=== PATIENT | female | born 1980 | race Caucasian/White ===

== ENCOUNTER 2023-05-23 18:03 | Observation (INO) | payer SELFPAY ==
[2023-05-23 20:48] VITALS: BMI 36.8
[2023-05-23] MEDS ORDERED: Promethazine HCl 25 MG/ML VIAL IM PRN (21:04)
[2023-05-23] MEDS ORDERED: Tranexamic Acid 1,000 MG/10 ML VIAL IVP PRN (21:04)
[2023-05-23] MEDS ORDERED: Ondansetron PF 4 MG/2 ML Vial IVP PRN (21:04)
[2023-05-23] MEDS ORDERED: Zolpidem Tartrate 5 MG TAB PO PRN (21:04)
[2023-05-23] MEDS ORDERED: Docusate 100 MG CAP PO PRN (21:04)
[2023-05-23] MEDS ORDERED: Cyclobenzaprine 10 MG TAB PO PRN (21:09)
[2023-05-23] MEDS ORDERED: Acetaminophen 500 MG TAB PO PRN (21:11)
[2023-05-23] MEDS ORDERED: Ferrous Sulfate 325 MG TAB PO SCH (21:30)
[2023-05-23] MEDS: traMADol HCl 50 MG TAB PO PRN (21:31)
[2023-05-24] MEDS: Lactated Ringer's 1,000 ML IV SCH ×2 (04:57→05:16)
[2023-05-24] MEDS: traMADol HCl 50 MG TAB PO PRN (05:42)
[2023-05-24 07:21] LABS: Hematocrit 28.4 % (34.9-44.5); Hemoglobin 8.5 g/dL (12.0-15.5); Mean Corpuscular HGB CONC 29.9 g/dL (32.0-36.0); Mean Corpuscular Volume 66.7 fl (81.6-98.3); Mean Platelet Volume 8.8 fl (7.4-10.4); Platelet Count 297 10x3/uL (150-450); RBC Distribution Width 21.5 % (11.5-14.5); Red Blood Cell (RBC) Count 4.26 10x6/uL (3.90-5.03); White Blood Cell (WBC) Count 6.6 10x3/uL (3.5-10.5)
[2023-05-24 07:50] VITALS: BP 117/55; TEMP 97.8
[2023-05-24] MEDS ORDERED: Ferrous Sulfate 325 MG TAB PO SCH (08:00)
[2023-05-24] MEDS ORDERED: Sertraline 100 MG TAB PO SCH (21:00)
== END 2023-05-24 11:31 | disposition home or self-care (01) ==
LOC: CSHPP 20:13
PROVIDERS: ADMIT Obstetrics & Gynecology; ATTEND Obstetrics & Gynecology
DX: R42 Dizziness and giddiness (principal); D25.9 Leiomyoma of uterus, unspecified; D50.0 Iron deficiency anemia secondary to blood loss (chronic); N93.9 Abnormal uterine and vaginal bleeding, unspecified; E66.9 Obesity, unspecified; Z68.36 Body mass index [BMI] 36.0-36.9, adult
CPT/HCPCS: 36415; 36430; 76856; 85027; 86850; 86900; 86901; 86922; J7120; P9016

== ENCOUNTER 2023-07-19 16:06 | Emergency (ER) | payer BC, SELFPAY ==
[2023-07-19] MEDS ORDERED: Acetaminophen 500 MG TAB ONE (17:43)
== END 2023-07-19 17:59 | disposition home or self-care (01) ==
LOC: CSHERS 16:06
DX: M79.662 Pain in left lower leg (principal); M25.562 Pain in left knee; F17.290 Nicotine dependence, other tobacco product, uncomplicated; W01.198A Fall on same level from slipping, tripping and stumbling with subsequent striking against other object, initial encounter